=== PATIENT | male | born 1970 | race Hispanic/Latino ===

== ENCOUNTER → 2019-09-20 | Outpatient (CLI) | payer BC | END | disposition home or self-care (01) | LOC: SHCH 15:34 | PROVIDERS: ATTEND Internal Medicine Cardiovascular Disease | DX: I51.7 Cardiomegaly (principal) ==

== ENCOUNTER → 2024-02-24 | Outpatient (CLI) | payer BC ==
[~2024-02-24] MED LIST: GADOTERATE MEGLUMINE 10 MMOL/20 ML VIAL IV ONE
--- NOTE | 2024-02-24 16:38 | HMCIMG ---
MR PITUITARY WWO (BRAIN WWO) HISTORY: Testicular hypofunction COMPARISON: None TECHNIQUE: MRI of the brain was performed utilizing multiple pulse sequences in axial, coronal and sagittal planes. Patient was given 20 cc of Clariscan through intravenous route. High-resolution images of the sella were obtained both before and after intravenous contrast administration. FINDINGS: The ventricles and extraventricular CSF spaces are nondilated for patient's age. There is no midline shift, mass effect or herniation. No subacute hemorrhage is seen. No MR evidence of acute infarct is seen in the diffusion weighted images. Cerebellar tonsils are in normal position. Mild bilateral ethmoid and maxillary sinusitis changes are seen with mucoperiosteal thickening. 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 There is thickening of the infundibulum with enhancement. No displacement of optic chiasm is seen. There may be mild displacement of the infundibulum. IMPRESSION: 1. No MR evidence of acute infarct is seen in the diffusion weighted images. 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 There is thickening of the infundibulum with enhancement. No displacement of optic chiasm is seen. There may be mild displacement of the infundibulum.
== END | disposition home or self-care (01) ==
LOC: RAH 14:36
PROVIDERS: ATTEND Internal Medicine
DX: E23.6 Other disorders of pituitary gland (principal); J32.2 Chronic ethmoidal sinusitis; J32.0 Chronic maxillary sinusitis; E29.1 Testicular hypofunction
CPT/HCPCS: 70553; A9575